=== PATIENT | male | born 1955 | race Caucasian/White ===

== ENCOUNTER 2016-05-23 02:02 | Inpatient (IN) | payer BC ==
[~2016-05-23] VITALS: Ht 167.6 cm; Wt 81.0 kg
[~2016-05-23 02:02] MED LIST: ASPI-535 PO; ATOR20TA38 PO; CAPT12.52 PO; CAPT25TA3 PO; CARV12.598 PO; CARV6.2579 PO; CLON0.1T14 PO; CLOP75TA27 PO; FAMO-30 PO; FAMO40TA38 PO; FENO200 PO; FLUTICASONE; LEVO750T8 PO; LORA-441 PO; PRAV40TA76 PO; SERT50TA6 PO; WELCHOL PO
[2016-05-23] MEDS ORDERED: morphine 4 MG/ML VIAL IV STA (02:06)
[2016-05-23] MEDS ORDERED: NITROGLYCERIN 2% 1 GM OINT PKT TD STA (02:06)
[2016-05-23] MEDS ORDERED: ONDANSETRON 4 MG INJ IV STA (02:06)
[2016-05-23 02:54] LABS: ADD SCAN DIFF NO
[2016-05-23 02:59] LABS: BASOPHILS % 0.3 % (0.0-2.0); EOSINOPHILS # 0.1 10^3/ul (0.0-0.5); EOSINOPHILS % 1.4 % (0.0-7.0); HEMATOCRIT 41.9 % (42.0-52.0); HEMOGLOBIN 13.9 g/dl (14.0-18.0); LYMPHOCYTES # 2.3 10^3/ul (0.8-2.9); LYMPHOCYTES % 26.1 % (15.0-51.0); MEAN CORPUSCULAR HEMOGLOBIN 28.5 pg (29.0-33.0); MEAN CORPUSCULAR HGB CONC 33.2 g/dl (32.0-37.0); MEAN CORPUSCULAR VOLUME 85.9 fl (82.0-101.0); MEAN PLATELET VOLUME 11.5 fl (7.4-10.4); MONOCYTE # 0.6 10^3/ul (0.3-0.9); NEUTROPHIL # 5.8 10^3/ul (1.6-7.5); NEUTROPHILS % 64.9 % (39.0-77.0); PLATELET COUNT 260 10^3/UL (140-415); RED BLOOD COUNT 4.88 10^6/ul (4.70-6.10); RED CELL DISTRIBUTION WIDTH 12.9 % (11.5-14.5); WHITE BLOOD COUNT 8.9 10^3/ul (4.8-10.8)
[2016-05-23 03:08] LABS: ALBUMIN 4.1 g/dl (3.3-4.9); CHLORIDE 103 mmol/L (97-110); POTASSIUM 3.9 mmol/L (3.5-5.1); SODIUM 144 mmol/L (135-144)
[2016-05-23 03:10] LABS: BILIRUBIN,INDIRECT 0.2 mg/dl (0-1.1); BILIRUBIN,TOTAL 0.2 mg/dl (0.2-1.3); CREATININE 0.78 mg/dl (0.61-1.24); INR 0.99; PROTIME 13.1 Sec (12.2-14.2)
[2016-05-23 03:11] LABS: ALANINE AMINOTRANSFERASE 46 IU/L (13-69); ALKALINE PHOSPHATASE 72 IU/L (42-121); ANION GAP 21 (8-16); ASPARTATE AMINO TRANSFERASE 25 IU/L (15-46); BLOOD UREA NITROGEN 20 mg/dl (7-20); CARBON DIOXIDE 24 mmol/L (21-31); GLUCOSE 123 mg/dl (70-220); PARTIAL THROMBOPLASTIN TIME 24.9 Sec (25.0-35.0); TOTAL PROTEIN 7.5 g/dl (6.1-8.1)
[2016-05-23 03:20] LABS: B-TYPE NATRIURETIC PEPTIDE 37 PG/ML (0-125)
[2016-05-23 03:27] LABS: TROPONIN-I < 0.012 ng/ml (0.00-0.12)
--- NOTE | 2016-05-23 03:36 | ERA ---
ER Documentation Chief Complaint Date/Time DATE: 05/23/16 TIME: 03:35 Chief Complaint CP this am unreleieved after 3 NTG tabs HPI This is a 14-year-old male comes in with chest pain since 1 AM. Unrelieved by 3 nitros. Pain is mild to moderate intensity, colicky nature with no exacerbating or alleviating factors ROS All systems reviewed and are negative except as per history of present illness. Medications Home Meds Reported Medications Atorvastatin Calcium* (Atorvastatin Calcium*) 20 Mg Tablet, 20 MG PO HS, TAB 10/30/13 Famotidine* (Pepcid*) 40 Mg Tablet, 40 MG PO DAILY, TAB 10/30/13 Captopril* (Captopril*) 25 Mg Tablet, 25 MG PO BID, TAB 10/30/13 Aspirin Ec (Aspir 81) 81 Mg Tablet.dr, 81 MG PO DAILY, TAB 10/30/13 Fenofibrate* (Fenofibrate*) 200 Mg Cap, 200 MG PO DAILY, CAP 10/30/13 Clopidogrel Bisulfate (Clopidogrel) 75 Mg Tablet, 75 MG PO DAILY, TAB 10/30/13 Carvedilol* (Coreg*) 12.5 Mg Tablet, 12.5 MG PO BID, TAB 10/30/13 Lorazepam* (Ativan*) 0.5 Mg Tablet, PO HS 07/03/13 Levofloxacin* (Levofloxacin*) 750 Mg Tablet, PO DAILY 07/03/13 Aspirin Ec (Aspir 81) 81 Mg Tablet.dr, PO DAILY 07/03/13 [Fluticasone] No Conflict Check, 50 MCG 07/03/13 Clonidine Hcl* (Catapres*) 0.1 Mg Tablet, PO Q8H 07/03/13 Sertraline Hcl* (Sertraline Hcl*) 50 Mg Tablet, PO DAILY 07/03/13 [Welchol] No Conflict Check, 625 MG PO 07/03/13 Famotidine* (Acid Controller*) 20 Mg Tablet, 20 MG PO DAILY 03/10/13 Clopidogrel Bisulfate (Clopidogrel) 75 Mg Tablet, 75 MG PO DAILY 03/10/13 Pravastatin Sodium* (Pravastatin Sodium*) 40 Mg Tablet, 80 MG PO DAILY, 0 Refills 03/10/13 Carvedilol* (Carvedilol*) 6.25 Mg Tablet, 6.25 MG PO BID 03/10/13 Captopril* (Captopril*) 12.5 Mg Tablet, 12.5 MG PO TID 03/10/13 Allergies Allergies: Coded Allergies: No Known Allergies (Verified Allergy, Unknown, 10/31/13) PMhx/Soc History of Surgery: Yes (triple bypass) Anesthesia Reaction: No Hx Neurological Disorder: No Hx Respiratory Disorders: No Hx Cardiac Disorders: Yes (heart attack 3 yrs ago with open heart surgery) Hx Psychiatric Problems: No Hx Miscellaneous Medical Probl: Yes (GERD) Hx Alcohol Use: No (wine occasionally) Hx Substance Use: No Hx Tobacco Use: No Smoking Status: Former smoker Physical Exam Vitals Vital Signs Date Time Temp Pulse Resp B/P Pulse Ox O2 Delivery O2 Flow Rate FiO2 05/23/16 02:21 Nasal Cannula 2 05/23/16 02:11 97.8 93 21 136/78 92 Physical Exam Const: [] Head: Atraumatic Eyes: Normal Conjunctiva ENT: Normal External Ears, Nose and Mouth. Neck: Full range of motion..~ No meningismus. Resp: Clear to auscultation bilaterally Cardio: Regular rate and rhythm, no murmurs Abd: Soft, non tender, non distended. Normal bowel sounds Skin: No petechiae or rashes Back: No midline or flank tenderness Ext: No cyanosis, or edema Neur: Awake and alert Psych: Normal Mood and Affect Result Diagram: 05/23/1621205/23/16212 Results 24 hrs Laboratory Tests Test 05/23/16 02:13 Activated Partial Thromboplast Time 24.9Sec Alanine Aminotransferase (ALT/SGPT) 46IU/L Albumin 4.1g/dl Albumin/Globulin Ratio 1.20 Alkaline Phosphatase 72IU/L Anion Gap 21 Aspartate Amino Transf (AST/SGOT) 25IU/L B-Type Natriuretic Peptide 37PG/ML Basophils # 0.010^3/ul Basophils % 0.3% Blood Urea Nitrogen 20mg/dl Calcium Level 9.0mg/dl Carbon Dioxide Level 24mmol/L Chloride Level 103mmol/L Creatinine 0.78mg/dl Direct Bilirubin 0.00mg/dl Eosinophils # 0.110^3/ul Eosinophils % 1.4% Globulin 3.40g/dl Glucose Level 123mg/dl Hematocrit 41.9% Hemoglobin 13.9g/dl INR International Normalized Ratio 0.99 Indirect Bilirubin 0.2mg/dl Lipase 64U/L Lymphocytes # 2.310^3/ul Lymphocytes % 26.1% Mean Corpuscular Hemoglobin 28.5pg Mean Corpuscular Hemoglobin Concent 33.2g/dl Mean Corpuscular Volume 85.9fl Mean Platelet Volume 11.5fl Monocytes # 0.610^3/ul Monocytes % 7.0% Neutrophils # 5.810^3/ul Neutrophils % 64.9% Nucleated Red Blood Cells # 0.010^3/ul Nucleated Red Blood Cells % 0.0/100WBC Platelet Count 62016^3/UL Potassium Level 3.9mmol/L Prothrombin Time 13.1Sec Prothrombin Time Ratio 1.0 Red Blood Count 4.8810^6/ul Red Cell Distribution Width 12.9% Sodium Level 144mmol/L Total Bilirubin 0.2mg/dl Total Protein 7.5g/dl Troponin I < 0.012ng/ml White Blood Count 8.910^3/ul Current Medications Medications (Trade) Dose Ordered Sig/Addie Route PRN Reason Start Time Stop Time Status Last Admin Dose Admin Nitroglycerin (Nitroglycerin 2% Oint) 1 inch ONCE STAT TD 05/23/16 02:06 05/23/16 02:08 DC 05/23/16 02:17 Morphine Sulfate (morphine) 4 mg ONCE STAT IV 05/23/16 02:06 05/23/16 02:08 DC Ondansetron HCl (Zofran Inj) 4 mg ONCE STAT IV 05/23/16 02:06 05/23/16 02:08 DC Procedures/MDM EKG: Rate/Rhythm: Normal Sinus Rhythm QRS, ST, T-waves: No changes consistent w/ acute ischemia Impression: No evidence of ischemia or arrhythmia Chest X-ray 1V Interpreted by me: Soft Tissue: No acute abnormalities Bones: No acute abnormalities Mediastinum/Cardiac Silhouette/Lungs: No acute abnormalities Patient's symptoms are concerning for cardiac cause will require inpatient workup and continuous monitoring. Further w/u for ischemia, arrhythmia, PE or dissection will be deferred to the inpatient team. Accepting Care Team: Current data and ongoing care discussed. Time: 3 AM Primary Provider: Dr. Nicole. Dr. Dunbar is on-call Consulting: [XOXOXO] Outstanding Data: none Departure Diagnosis: Primary Impression: Chest pain Qualified Code: I20.9 - Ischemic chest pain Additional Impression: Hypertensive emergency RAIZA BONDS May 23, 2016 03:36
--- NOTE | 2016-05-23 04:45 | RADRPT ---
PROCEDURE: CHEST - 1 VIEW CLINICAL INDICATION: 61-year-old male with chest pain. TECHNIQUE: A single frontal AP semi-erect view of the chest was performed portably. The images we re reviewed on a PACS workstation. COMPARISON: Chest x-ray on this 2013. FINDINGS: The patient has had a prior median sternotomy. There is a shallow inspiration accentuating the hear t size. Accounting for this, the cardiomediastinal silhouette is within normal limits without signi ficant interval change. There is mild bibasilar subsegmental atelectasis. There is no evidence for an infiltrate. There is no evidence for congestive heart failure. There is no evidence for pneumot horax. IMPRESSION: 1. Status post median sternotomy. 2. Shallow inspiration. 3. Mild bibasilar subsegmental atelectasis. .Suhail Huber MD, Date Time Electronically viewed and signed by .Suhail Huber MD, on 05/23/2016 04:45 .M/
[2016-05-23] MEDS ORDERED: ERGO500037 PO (06:58)
[2016-05-23] MEDS ORDERED: ASPI-664 PO (06:58)
[2016-05-23] MEDS ORDERED: ATOR80TA75 PO (06:59)
[2016-05-23] MEDS ORDERED: METO25TA7 PO (06:59)
[2016-05-23] MEDS ORDERED: CILO100T PO (06:59)
[2016-05-23] MEDS ORDERED: morphine 2 MG INJ IV PRN (11:00)
[2016-05-23] MEDS ORDERED: LORAZEPAM 0.5 MG TAB PO PRN (11:00)
[2016-05-23] MEDS ORDERED: DOCUSATE SODIUM 100 MG CAP PO PRN (11:00)
[2016-05-23] MEDS ORDERED: METOCLOPRAMIDE 10 MG INJ IV PRN (11:00)
[2016-05-23] MEDS ORDERED: NITROGLYCERIN (SL) 0.4 MG TAB SL PRN (11:00)
[2016-05-23] MEDS ORDERED: NACL 0.9% 3 ML SYG IV SCH (11:00)
--- NOTE | 2016-05-23 11:38 | RADRPT ---
Echocardiogram Report Patient Name: CHIKA FRANCIS Gender: Male Date: 1955 Study Date: 23-May-2016 Director Physical: Rere Loomis RDCS Location: Ref. Physician: JOVANI WINSTON Quality: Good Procedures: Transthoracic echocardiogram with complete 2D, M-Mode, and doppler examination. Indications: Coronary Artery Disease. 2D/M Mode Doppler Measurement Value Normal Ranges Measurement Value Normal Ranges LVIDd 2D 4.1 3.5 - 5.6 cm AV Peak Dyllan 1.0 m/sec LVIDs 2D 3.2 2.1 - 4.1 cm AV Peak PG 4.0 mmHg FS 2D 23.9 % LVOT Peak Dyllan 0.8 m/sec LVPWd 2D 1.1 0.6 - 1.1 cm LVOT Peak PG 3.0 mmHg IVSd 2D 0.9 0.6 - 1.1 cm MV E Peak Dyllan 0.4 m/sec IVS/LVPW 2D 0.8 MV A Peak Dyllan 0.6 m/sec AoR Diam 2D 2.8 2.0 - 3.7 cm MV E/A 0.7 LA/Ao 2D 1 0 - 1 MV Decel Time 218 msec EDV 2D 71.0 cm3 MV E/A 0.7 ESV 2D 31.3 cm3 LA Dimen 2D 3.9 2.3 - 4.0 cm Findings Left Ventricle: Normal left ventricular systolic function. Normal left ventricular cavity size. Normal left ventricular wall thickness. Ejection fraction is visually estimated at 60 %. Tissue Doppler/Mitral Doppler indices are consistent with impaired relaxation (Stage I diastolic dysfunction). Right Ventricle: Normal right ventricular size. Normal right ventricular systolic function. Left Atrium: The left atrium is normal in size. Right Atrium: The right atrium is normal in size. Mitral Valve: Mitral valve leaflets appear mildly thickened. Trace mitral regurgitation. Aortic Valve: Normal appearance of the aortic valve. No significant aortic stenosis or insufficiency. Tricuspid Valve: Normal appearance and function of the tricuspid valve with trace physiologic regurgitation. Pulmonic Valve: Normal pulmonic valve appearance. Pericardium: Normal pericardium with no significant pericardial effusion. Aorta: Normal aortic root. IVC: Normal size and normal respiratory collapse consistent with normal right atrial pressure. Conclusions 1.Normal left ventricular systolic function. Normal left ventricular cavity size. Normal left ventricular wall thickness. Ejection fraction is visually estimated at 60 %. Tissue Doppler/Mitral Doppler indices are consistent with impaired relaxation (Stage I diastolic dysfunction). 2.Normal right ventricular size. Normal right ventricular systolic function. 3.The left atrium is normal in size. 4.The right atrium is normal in size. 5.No significant valvular stenosis or regurgitation seen. 6.Normal pericardium with no significant pericardial effusion. Electronically Signed By: Arcadio Linn 23-May-2016 11:37:37 -0800 Patient Name: CHIKA FRANCIS Study Date: 23-May-[id number]
[2016-05-23] MEDS: PANTOPRAZOLE (EC) 40 MG TAB PO SCH (11:48)
[2016-05-23] MEDS: ASPIRIN 81 MG TAB PO SCH (11:48)
[2016-05-23] MEDS: ENOXAPARIN 30 MG/0.3 ML SYG SC SCH (11:49)
[2016-05-23 12:39] LABS: CK-MB 0.52 ng/ml (0.0-2.4)
--- NOTE | 2016-05-23 12:55 | HP ---
DATE OF ADMISSION: 05/23/2016 CHIEF COMPLAINT: Chest pain and hypertension. HISTORY OF PRESENT ILLNESS: The patient is a 61-year-old gentleman with past medical history positi ve for coronary artery disease status post CABG 5 years ago with history of hypertension. The patie nt stated that he follows in Dr. Jensen's office and had a stress test done in 12/2015 with no notion of ischemia. The patient stated that he has on and off chest pain that he has been having for the last 6 months. The patient stated that he had chest pain develop last night and he took nitroglycer in, which did not relieve any pain. The patient also complains of headache and stated that his bloo d pressure was elevated and patient took his regular blood pressure medication, which is Coreg and C atapres. The patient was able to fall asleep; however, woke up in the middle of the night with head ache and chest pain, and they measured his blood pressure which was 195/100. The patient decided to come to the emergency room for further evaluation. In the emergency room, patient underwent a ches t x-ray which showed mild bibasilar subsegmental atelectasis, shallow inspiration, status post media n sternotomy. The patient's troponin was found negative. The patient was given some nitroglycerin, morphine and Zofran with some relief in pain. The patient denies any fever or chills. Denies any nausea, vomiting, diarrhea. Denies any bilateral lower extremity swelling. The patient denies any cough. Denies any recent infection. The patient denies any neurological symptoms. The patient violet l be admitted for further evaluation and management to telemetry floor. PAST MEDICAL HISTORY: Positive for coronary artery disease and hypertension. PAST SURGICAL HISTORY: Status post CABG 5 years ago. FAMILY HISTORY: Noncontributory. SOCIAL HISTORY: The patient lives at home with his family. The patient denies any tobacco use. De nies any illicit drug use. The patient drinks alcohol a small amount occasionally. ALLERGIES: NO KNOWN ALLERGIES. HOME MEDICATIONS: 1. Atorvastatin. 2. Pepcid. 3. Captopril. 4. Aspirin. 5. Fenofibrate. 6. Plavix. 7. Coreg. 8. Ativan. 9. Catapres. 10. Sertraline. REVIEW OF SYSTEMS: A 12-point review of systems is negative unless what mentioned in the HPI. PHYSICAL ASSESSMENT GENERAL: A well-developed, well-nourished male, currently is awake, alert. VITAL SIGNS: Temperature 97.8, pulse is 64, blood pressure is 110/73, respiratory rate 20, oxygen s aturation 99% on 2 liters nasal cannula. HEENT: Head is atraumatic, normocephalic. Pupils equal, round, reactive to light and accommodation . Oral mucosa is pink and moist. NECK: Supple, no cervical lymphadenopathy, no thyromegaly, no JVD. CHEST: Lungs are clear bilaterally. There is no rhonchi, wheezes, rales noted. CARDIOVASCULAR: Normal S1, S2. No murmurs, gallops, clicks, rubs noted. ABDOMEN: Round, soft, nondistended, nontender. Bowel sounds present. There is no guarding, no re bound tenderness. EXTREMITIES: No edema, clubbing, cyanosis. Pulses equal bilaterally, 2+. SKIN: There is no rash, petechiae noted. NEUROLOGIC: The patient is awake, alert and oriented x4. No focal deficits noted. Motor strength is 5/5 in all extremities. ASSESSMENT AND PLAN: 1. Chest pain. Rule out acute coronary syndrome. We will obtain cardiac enzymes q.8h. x3. Dr. Clarence zaragoza will be following patient in cardiology consultation. Obtain 12-lead EKG and 2D echocardiogra m to evaluate ejection fraction. Continue patient on Coreg and Catapres. Continue aspirin and nitr oglycerin for pain. 2. Hypertension. 3. Coronary artery disease, status post CABG 5 years ago. PLAN: We will continue morphine and Tylenol p.r.n. for pain. Start Lovenox for deep venous thrombo sis prophylaxis and Protonix for peptic ulcer disease prophylaxis. Further recommendations based on clinical course. Plan of care discussed with Dr. Paul. Dictated By: JOVANI WINSTON DIGITAL ASSISTANT for SERVANDO PAUL MD SR/NTS Conf#: [id number] DID#: [id number]
[2016-05-23 16:01] VITALS: Ht 167.6 cm; Wt 81.0 kg
[2016-05-23 16:39] VITALS: PULSE 70
--- NOTE | 2016-05-23 17:26 | CONS ---
DATE OF ADMISSION: 05/23/2016 DATE OF CONSULTATION: 05/23/2016 REASON FOR CONSULTATION: Chest pain, assess for acute coronary syndrome. REQUESTING PHYSICIAN: Servando Paul MD HISTORY OF PRESENT ILLNESS: Mr. Pool is a 61-year-old male with history of coronary artery di sease, status post coronary artery bypass grafting 5 years prior, hypertension, dyslipidemia who ini tially presented with complaints of substernal chest pain, poorly described, occurring at rest. Upo n arrival in the emergency department, temperature 97.8, blood pressure 136/78, pulse 93, respirator y rate 21, saturating 92%. The patient's labs revealed white count 8.9, hemoglobin 13.9, platelet c ount of 260. Sodium 144, potassium 3.9, creatinine 0.78, BUN 20. Troponin negative. BNP of 37, IN R 0.99. The patient's chest x-ray revealed shallow respirations, mild bibasilar subsegmental atelec tasis. The patient's electrocardiogram revealed normal sinus rhythm at 87, normal axis, normal inte rvals, with nonspecific ____. The patient was subsequently admitted to the floor and since admit to the floor, has been treated with morphine and Nitro Paste, he has improvement in chest pain. PAST MEDICAL HISTORY: As above in HPI. Patient stated he had a stress test in my office in December 2015, which was negative for ischemia, results which are unknown to me at this time. MEDICATIONS CURRENTLY IN HOSPITAL: 1. Aspirin 81 mg daily. 2. Protonix 40 mg daily. 3. Reglan p.r.n. 4. Sublingual nitroglycerin p.r.n. 5. Morphine p.r.n. 5. Colace p.r.n. 6. Lovenox p.r.n. MEDICATIONS PRIOR TO ADMIT: 1. Pletal 100 mg b.i.d. 2. Lipitor 80 mg at bedtime. 3. Captopril 25 mg p.o. b.i.d. 4. ____ 20 mg daily. 4. Toprol-XL 25 mg daily. 5. Aspirin 81 mg daily. 6. Pepcid 20 mg daily. 7. Vitamin D. ALLERGIES: NO KNOWN DRUG ALLERGIES. SOCIAL HISTORY: No tobacco, ETOH or illicit drug use. FAMILY HISTORY: No history of sudden cardiac or early CAD. REVIEW OF SYSTEMS: As above in HPI. CONSTITUTIONAL: No fevers, chills. PULMONARY: No current shortness of breath. CARDIOVASCULAR: Chest pain. GASTROINTESTINAL: No vomiting. GENITOURINARY: No hematuria. MUSCULOSKELETAL: Degenerative joint disease. PSYCHIATRIC: The patient denies depression. NEUROLOGIC: No documented history of CVA. ENDOCRINE: No documented history of diabetes mellitus. PHYSICAL EXAMINATION: VITAL SIGNS: Temperature 97.8, blood pressure 119/74, pulse 70, satting 100% on 2 liters. GENERAL: The patient is alert, awake, complaining of intermittent substernal chest pain. NECK: JVP approximately 8 cm water. CHEST: Fair air movement throughout. HEART: Regular rate and rhythm. Normal S1, S2, I/ systolic murmur, nondisplaced PMI. ABDOMEN: Positive bowel sounds, soft. EXTREMITIES: No pitting edema, 1+ pulses bilaterally, posterior tibial. LABORATORIES: As above in HPI, with most recently from today, troponin negative x2. IMAGING STUDIES: As above in HPI. No further imaging studies for my review at this time. ECG: As above in HPI. No further electrocardiograms for my review at this time. IMPRESSION: 1. Chest pain, assess for acute coronary syndrome. 2. History of coronary artery disease, status post coronary bypass grafting. 3. Hypertension. 4. Abnormal electrocardiogram, assess for acute coronary syndrome. 5. History of dyslipidemia. RECOMMENDATIONS: 1. At this time, would maintain the patient on telemetry monitoring to follow rhythm and rate contr ol closely. 2. Continue the patient's current aspirin for prophylaxis against cardiovascular events. 3. Would resume the patient's baseline beta jessica for control of heart rate and blood pressure in the setting of known coronary artery disease and chest pain and will additionally resume the patien t's baseline captopril and statin therapy. 4. Complete the patient's rule out for myocardial infarction, ____that the patient's chest pain was not due to an acute coronary syndrome ____ acute myocardial infarction. 5. Check a fasting lipid panel and will adjust the patient's statin therapy as above. 6. We will follow the patient's stress test done in the office to assess for the possibility of nee d of a left heart catheterization and the patient has undergone a 2D echo interpreted by another car diologist, read as EF of 60% with diastolic dysfunction. Thank you for allowing me to take part in the care of this patient. I will continue to follow along very closely with you. Further recommendations will be made as the patient progresses through his inpatient hospital clinical course. Dictated By: ROSHNI BOSS/MJ Conf#: [id number] DID#: [id number] CC: SERVANDO PAUL MD; BASILIO ROUSE MD;*EndCC*
[2016-05-23 19:20] LABS: CREATINE KINASE 70 IU/L (23-200)
[2016-05-23 19:34] LABS: CK-MB 0.46 ng/ml (0.0-2.4); TROPONIN-I < 0.012 ng/ml (0.00-0.12)
[2016-05-23] MEDS: ACETAMINOPHEN 325 MG TAB PO PRN (19:52)
[2016-05-23 20:00] VITALS: BP 135/83; RESP 19
[2016-05-23 20:25] VITALS: PULSE 79
[2016-05-23] MEDS: ISOSORBIDE DINITRATE 10 MG TAB PO SCH (21:38)
[2016-05-24] VITALS (11 sets, daily range): BP systolic 104–149; BP diastolic 57–78; PULSE 63–89; RESP 18–20
[2016-05-24] MEDS: PANTOPRAZOLE (EC) 40 MG TAB PO SCH (05:10)
[2016-05-24 07:51] LABS: POTASSIUM 4.1 mmol/L (3.5-5.1)
[2016-05-24 07:54] LABS: ALBUMIN/GLOBULIN RATIO 1.25; BILIRUBIN,INDIRECT 0.3 mg/dl (0-1.1); BILIRUBIN,TOTAL 0.3 mg/dl (0.2-1.3); CREATININE 0.86 mg/dl (0.61-1.24); TOTAL PROTEIN 7.2 g/dl (6.1-8.1)
[2016-05-24 08:24] LABS: THYROID STIMULATING HORMONE 1.14 MIU/L (0.465-4.680)
[2016-05-24] MEDS: ISOSORBIDE DINITRATE 10 MG TAB PO SCH ×3 (08:38→20:27)
[2016-05-24] MEDS: ASPIRIN 81 MG TAB PO SCH (08:38)
[2016-05-24] MEDS: ACETAMINOPHEN 325 MG TAB PO PRN (08:38)
[2016-05-24] MEDS: ENOXAPARIN 30 MG/0.3 ML SYG SC SCH (08:50)
[2016-05-24] MEDS ORDERED: METOPROLOL (XL) 25 MG TAB PO SCH (09:00)
--- NOTE | 2016-05-24 15:43 | PN ---
Date/Time of Note Date/Time of Note DATE: 05/24/16 TIME: 15:42 Assessment/Plan Lines/Catheters IV [facility]ter Type (from [facility]): Peripheral IV Urinary Cath still in place: No Assessment/Plan Assessment/Plan 1. Chest pain. Rule out acute coronary syndrome. We will obtain cardiac enzymes q.8h. x3. Dr. Pastrana will be following patient in cardiology consultation. Obtain 12-lead EKG and 2D echocardiogram to evaluate ejection fraction. Continue patient on Coreg and Catapres. Continue aspirin and nitroglycerin for pain. 2. Hypertension. 3. Coronary artery disease, status post CABG 5 years ago. PLAN: We will continue morphine and Tylenol p.r.n. for pain. Start Lovenox for deep venous thrombosis prophylaxis and Protonix for peptic ulcer disease prophylaxis. Further recommendations based on clinical course. Plan of care discussed with Dr. Strong. Subjective 24 Hr Interval Summary Constitutional: improved, no complaints ENT: no complaints Respiratory: no complaints Cardiovascular: no complaints Gastrointestinal: no complaints Exam/Review of Systems Vital Signs Vitals Vital Signs Date Time Temp Pulse Resp B/P Pulse Ox O2 Delivery O2 Flow Rate FiO2 05/24/16 15:17 97.7 74 19 125/72 98 05/23/16 21:40 Nasal Cannula 2.0 Intake and Output 05/23/16 05/23/16 05/24/16 15:00 23:00 07:00 Intake Total 480 ml Output Total 580 ml Balance -100 ml Exam Constitutional: alert, oriented ENMT: nl external ears & nose Results Result Diagram: 05/23/16 0213 05/24/16 0620 Results 24 hrs Laboratory Tests Test 05/23/16 18:55 05/24/16 06:20 Creatine Kinase 70 Creatine Kinase Index 0.7 Creatinine Kinase MB (Mass) 0.46 Troponin I < 0.012 < 0.012 Alanine Aminotransferase (ALT/SGPT) 44 Albumin 4.0 Albumin/Globulin Ratio 1.25 Alkaline Phosphatase 65 Anion Gap 17 H Aspartate Amino Transf (AST/SGOT) 26 B-Type Natriuretic Peptide 51 Blood Urea Nitrogen 21 H Calcium Level 9.0 Carbon Dioxide Level 26 Chloride Level 104 Creatinine 0.86 Direct Bilirubin 0.00 Globulin 3.20 Glucose Level 104 Indirect Bilirubin 0.3 Potassium Level 4.1 Sodium Level 143 Thyroid Stimulating Hormone (TSH) 1.140 Total Bilirubin 0.3 Total Protein 7.2 Medications Medications Current Medications Lorazepam (Ativan) 0.5 mg Q8H PRN PO ANXIETY; Start 05/23/16 at 11:00 Metoclopramide HCl (Reglan) 10 mg Q6H PRN IV NAUSEA AND/OR VOMITING; Start 05/23 at 11:00 Aspirin (Aspirin) 81 mg DAILY PO Last administered on 05/24/16 08:38; Admin Dose 81 MG; Start 05/23/16 at 12:00 Nitroglycerin (Nitroglycerin (Sl Tab) 0.4 Mg) 1 tab Q5M PRN SL CHEST PAIN; Start 05/23/16 at 11:00 Acetaminophen (Tylenol Tab) 650 mg Q6H PRN PO PAIN LEVEL 1-3 OR FEVER Last administered on 05/24/16 08:38; Admin Dose 650 MG; Start 05/23/16 at 11:00 Morphine Sulfate (morphine) 2 mg Q4H PRN IV PAIN LEVEL 7-10; Start 05/23/16 at 11:00 Docusate Sodium (Colace) 100 mg Q12H PRN PO CONSTIPATION; Start 05/23/16 at 11: 00 Pantoprazole (Protonix Tab) 40 mg DAILY@06 PO Last administered on 05/24/16 05: 10; Admin Dose 40 MG; Start 05/23/16 at 12:00 Enoxaparin Sodium (Lovenox) 30 mg DAILY SC Last administered on 05/24/16 08:50 ; Admin Dose 30 MG; Start 05/23/16 at 11:00 Metoprolol Succinate (Toprol Xl) 25 mg DAILY PO Last administered on 05/24/16 08:38; Admin Dose 25 MG; Start 05/24/16 at 09:00 Isosorbide Dinitrate (Isordil) 10 mg TID PO Last administered on 05/24/16 12:20 ; Admin Dose 10 MG; Start 05/23/16 at 21:00 MILTON MORFIN May 24, 2016 15:43
--- NOTE | 2016-05-24 18:31 | CONS ---
Date/Time of Note Date/Time of Note DATE: 05/24/16 TIME: 18:25 Assessment/Plan Assessment/Plan Chief Complaint/Hosp Course IMPRESSION: 1. Chest pain, assess for acute coronary syndrome.-negative troponin x 3/NL EF by echo this admit. Stress test done in office 11/07 was read as probably NL with possible inferior scar and ? ischemia verssus artifact 2. History of coronary artery disease, status post coronary bypass grafting. 3. Hypertension. 4. Abnormal electrocardiogram, assess for acute coronary syndrome. 5. History of dyslipidemia Redcc: -Tele -serial ecg's -Continue BB/oral nitrates. -Continue asa -If no recurrent pain then patient is ok for d/c from cardiac standpoint with close outpatient f/u Problems: Consultation Date/Type/Reason Admit Date/Time May 23, 2016 at 03:32 Initial Consult Date 05/23/2016 Type of Consultation: Cardiology Reason for Consultation CHF Referring Provider: SERVANDO PAUL MD Exam/Review of Systems Vital Signs Vitals Vital Signs Date Time Temp Pulse Resp B/P Pulse Ox O2 Delivery O2 Flow Rate FiO2 05/24/16 16:00 89 05/24/16 15:17 97.7 19 125/72 98 05/23/16 21:40 Nasal Cannula 2.0 Intake and Output 05/23/16 05/23/16 05/24/16 15:00 23:00 07:00 Intake Total 480 ml Output Total 580 ml Balance -100 ml Exam Review of Systems: CONSTITUTIONAL: No fevers, chills. PULMONARY: No sob CARDIOVASCULAR: No chest pain/palpitations GASTROINTESTINAL: No nausea/vomiting. GENITOURINARY: No hematuria/dysuria. MUSCULOSKELETAL: No myagias/arthalgias. PSYCHIATRIC: The patient denies depression. NEUROLOGIC: No weakness Constitutional: alert, oriented Psych: no complaints Head: normocephalic ENMT: mucosa pink and moist Neck: jvd (9 cm water), supple Respiratory: diminished breath sounds (at bases/B) Cardiovascular: regular rate and rhythm Gastrointestinal: non-tender, soft Musculoskeletal: muscle tone (normal) Extremities: edema Neurological: other (No focal deficits) Results Result Diagram: 05/23/16 0213 05/24/16 0620 Results 24 hrs Laboratory Tests Test 05/23/16 18:55 05/24/16 06:20 Creatine Kinase 70 Creatine Kinase Index 0.7 Creatinine Kinase MB (Mass) 0.46 Troponin I < 0.012 < 0.012 Alanine Aminotransferase (ALT/SGPT) 44 Albumin 4.0 Albumin/Globulin Ratio 1.25 Alkaline Phosphatase 65 Anion Gap 17 H Aspartate Amino Transf (AST/SGOT) 26 B-Type Natriuretic Peptide 51 Blood Urea Nitrogen 21 H Calcium Level 9.0 Carbon Dioxide Level 26 Chloride Level 104 Creatinine 0.86 Direct Bilirubin 0.00 Globulin 3.20 Glucose Level 104 Indirect Bilirubin 0.3 Potassium Level 4.1 Sodium Level 143 Thyroid Stimulating Hormone (TSH) 1.140 Total Bilirubin 0.3 Total Protein 7.2 Medications Medications Current Medications Lorazepam (Ativan) 0.5 mg Q8H PRN PO ANXIETY; Start 05/23/16 at 11:00 Metoclopramide HCl (Reglan) 10 mg Q6H PRN IV NAUSEA AND/OR VOMITING; Start 05/23 at 11:00 Aspirin (Aspirin) 81 mg DAILY PO Last administered on 05/24/16 08:38; Admin Dose 81 MG; Start 05/23/16 at 12:00 Nitroglycerin (Nitroglycerin (Sl Tab) 0.4 Mg) 1 tab Q5M PRN SL CHEST PAIN; Start 05/23/16 at 11:00 Acetaminophen (Tylenol Tab) 650 mg Q6H PRN PO PAIN LEVEL 1-3 OR FEVER Last administered on 05/24/16 08:38; Admin Dose 650 MG; Start 05/23/16 at 11:00 Morphine Sulfate (morphine) 2 mg Q4H PRN IV PAIN LEVEL 7-10; Start 05/23/16 at 11:00 Docusate Sodium (Colace) 100 mg Q12H PRN PO CONSTIPATION; Start 05/23/16 at 11: 00 Pantoprazole (Protonix Tab) 40 mg DAILY@06 PO Last administered on 05/24/16 05: 10; Admin Dose 40 MG; Start 05/23/16 at 12:00 Enoxaparin Sodium (Lovenox) 30 mg DAILY SC Last administered on 05/24/16 08:50 ; Admin Dose 30 MG; Start 05/23/16 at 11:00 Metoprolol Succinate (Toprol Xl) 25 mg DAILY PO Last administered on 05/24/16 08:38; Admin Dose 25 MG; Start 05/24/16 at 09:00 Isosorbide Dinitrate (Isordil) 10 mg TID PO Last administered on 05/24/16t 12:20 ; Admin Dose 10 MG; Start 05/23/16 at 21:00 ROSHNI TRACY May 24, 2016 18:31
--- NOTE | 2016-05-24 19:40 | PDOCDIS ---
Discharge Instructions CONDITION Patient Condition: Stable HOME CARE INSTRUCTIONS: Diet Instructions: Special Diet: Cardiac ACTIVITY: Activity Restrictions: Slowly Increase Activity Rest between Activity Avoid heavy lifting Do not operate Machinery Do not operate Power Tool Avoid Heavy Housework Bathing Restrictions: Sponge Bath FOLLOW UP/APPOINTMENTS Appointments FU with primary MD X 1 week FU with cardiology x 1week Patient verbalized understanding discharge instructions. call 911 or go to the nearest hospital if symptoms get worse. Daniele Strong/ staff/patient. MILTON MORFIN May 24, 2016 19:40
[2016-05-24] MEDS ORDERED: ISOS10TA2 PO (19:54)
[2016-05-24] MEDS ORDERED: PANT40TA4 PO (19:54)
[2016-05-24] MEDS ORDERED: NIT4 SL (19:54)
--- NOTE | 2016-05-24 20:03 | DS ---
Date/Time of Note Date/Time of Note DATE: 05/24/16 TIME: 20:03 Discharge Summary Admission/Discharge Info Admit Date/Time May 23, 2016 at 03:32 Discharge Date/Time Patient Condition: Stable Hospital Course IMPRESSION: 1. Chest pain, assess for acute coronary syndrome.-negative troponin x 3/NL EF by echo this admit. Stress test done in office 11/07 was read as probably NL with possible inferior scar and ? ischemia verssus artifact 2. History of coronary artery disease, status post coronary bypass grafting. 3. Hypertension. 4. Abnormal electrocardiogram, assess for acute coronary syndrome. 5. History of dyslipidemia Redcc: -Tele -serial ecg's -Continue BB/oral nitrates. -Continue asa -If no recurrent pain then patient is ok for d/c from cardiac standpoint with close outpatient f/u Home Meds Active Scripts Pantoprazole* (Pantoprazole*) 40 Mg Tablet., 40 MG PO DAILY@06 for 30 Days Prov:MILTON MORFIN 05/24/16 Nitroglycerin* (Nitrostat*) 0.4 Mg Tab.subl, 1 TAB SL Q5M Y for CHEST PAIN, #30 Prov:MILTON MORFIN 05/24/16 Isosorbide Dinitrate* (Isordil*) 10 Mg Tablet, 10 MG PO TID for 30 Days, TAB Prov:MILTON MORFIN 05/24/16 Reported Medications Metoprolol Succinate* (Toprol XL*) 25 Mg Tab.sr.24h, 25 MG PO DAILY, #30 TAB 05/23/16 Atorvastatin* (Atorvastatin*) 80 Mg Tablet, 80 MG PO QHS, #30 TAB 05/23/16 Cilostazol* (Cilostazol*) 100 Mg Tablet, 100 MG PO BID, TAB 05/23/16 Aspirin (Low Dose Aspirin) 81 Mg Tablet.dr, 81 MG PO DAILY, #30 TAB 05/23/16 Ergocalciferol (Vitamin D2) (VITAMIN D2) 50,000 Unit Capsule, 51680 UNIT PO every 7 days, CAP 05/23/16 Captopril* (Captopril*) 25 Mg Tablet, 25 MG PO BID, TAB 10/30/13 Fenofibrate* (Fenofibrate*) 200 Mg Cap, 200 MG PO DAILY, CAP 10/30/13 Famotidine* (Acid Controller*) 20 Mg Tablet, 20 MG PO DAILY 03/10/13 Discontinued Reported Medications Atorvastatin Calcium* (Atorvastatin Calcium*) 20 Mg Tablet, 20 MG PO HS, TAB 10/30/13 Famotidine* (Pepcid*) 40 Mg Tablet, 40 MG PO DAILY, TAB 10/30/13 Aspirin Ec (Aspir 81) 81 Mg Tablet.dr, 81 MG PO DAILY, TAB 10/30/13 Clopidogrel Bisulfate (Clopidogrel) 75 Mg Tablet, 75 MG PO DAILY, TAB 10/30/13 Carvedilol* (Coreg*) 12.5 Mg Tablet, 12.5 MG PO BID, TAB 10/30/13 Lorazepam* (Ativan*) 0.5 Mg Tablet, PO HS 07/03/13 Levofloxacin* (Levofloxacin*) 750 Mg Tablet, PO DAILY 07/03/13 Aspirin Ec (Aspir 81) 81 Mg Tablet.dr, PO DAILY 07/03/13 [Fluticasone] No Conflict Check, 50 MCG 07/03/13 Clonidine Hcl* (Catapres*) 0.1 Mg Tablet, PO Q8H 07/03/13 Sertraline Hcl* (Sertraline Hcl*) 50 Mg Tablet, PO DAILY 07/03/13 [Welchol] No Conflict Check, 625 MG PO 07/03/13 Clopidogrel Bisulfate (Clopidogrel) 75 Mg Tablet, 75 MG PO DAILY 03/10/13 Pravastatin Sodium* (Pravastatin Sodium*) 40 Mg Tablet, 80 MG PO DAILY, 0 Refills 03/10/13 Carvedilol* (Carvedilol*) 6.25 Mg Tablet, 6.25 MG PO BID 03/10/13 Captopril* (Captopril*) 12.5 Mg Tablet, 12.5 MG PO TID 03/10/13 Pending Labs Laboratory Tests Test 05/24/16 06:20 Alanine Aminotransferase (ALT/SGPT) 44IU/L (13-69) Albumin 4.0g/dl (3.3-4.9) Albumin/Globulin Ratio 1.25 Alkaline Phosphatase 65IU/L (42-121) Anion Gap 17 (8-16) Aspartate Amino Transf (AST/SGOT) 26IU/L (15-46) B-Type Natriuretic Peptide 51PG/ML (0-125) Blood Urea Nitrogen 21mg/dl (7-20) Calcium Level 9.0mg/dl (8.4-10.2) Carbon Dioxide Level 26mmol/L (21-31) Chloride Level 104mmol/L (97-110) Creatinine 0.86mg/dl (0.61-1.24) Direct Bilirubin 0.00mg/dl (0.00-0.20) Globulin 3.20g/dl (1.3-3.2) Glucose Level 104mg/dl (70-220) Indirect Bilirubin 0.3mg/dl (0-1.1) Potassium Level 4.1mmol/L (3.5-5.1) Sodium Level 143mmol/L (135-144) Thyroid Stimulating Hormone (TSH) 1.140MIU/L (0.465-4.680) Total Bilirubin 0.3mg/dl (0.2-1.3) Total Protein 7.2g/dl (6.1-8.1) Troponin I < 0.012ng/ml (0.00-0.12) MILTON MORFIN May 24, 2016 20:03
--- NOTE | 2016-05-25 13:39 | RADRPT ---
Vent Rate: 62 bpm RR Interval: 0 msec [place] Interval: 172 msec QRS Duration: 76 msec QT Interval: 414 msec QTC Interval: 420 msec P-R-T [place]: 53 - 33 - 46 degrees Normal sinus rhythm Normal ECG Electronically Signed By: Wale Phelan [id number]
== END 2016-05-24 21:15 | disposition home or self-care (01) | DRG 313 ==
LOC: E/R 02:02 → TEL 03:32
PROVIDERS: ADMIT Internal Medicine; ATTEND Internal Medicine
DX: R07.9 Chest pain, unspecified (principal); I25.2 Old myocardial infarction; I10 Essential (primary) hypertension; K21.9 Gastro-esophageal reflux disease without esophagitis; I25.10 Atherosclerotic heart disease of native coronary artery without angina pectoris; E78.5 Hyperlipidemia, unspecified; R94.31 Abnormal electrocardiogram [ECG] [EKG]; Z95.1 Presence of aortocoronary bypass graft; Z79.82 Long term (current) use of aspirin; Z79.02 Long term (current) use of antithrombotics/antiplatelets; Z87.891 Personal history of nicotine dependence
CPT/HCPCS: 36415; 71010; 80053; 82550; 82553; 83690; 83880; 84443; 84484; 85025; 85610; 85730; 93005; 93306; 96372; J1650; J2270; J2405

== ENCOUNTER 2016-11-10 20:05 | Emergency (ER) | payer BC, OTHER ==
[~2016-11-10] VITALS: Ht 167.6 cm; Wt 72.3 kg
[~2016-11-10 20:05] MED LIST changes: -ASPI-535 PO; +ASPI-664 PO; -ATOR20TA38 PO; +ATOR80TA75 PO; -CAPT12.52 PO; -CARV12.598 PO; -CARV6.2579 PO; +CILO100T PO; -CLON0.1T14 PO; -CLOP75TA27 PO; +ERGO500037 PO; -FAMO40TA38 PO; -FLUTICASONE; +ISOS10TA2 PO; -LEVO750T8 PO; -LORA-441 PO; +METO25TA7 PO; +NIT4 SL; +PANT40TA4 PO; -PRAV40TA76 PO; -SERT50TA6 PO; -WELCHOL PO
[2016-11-10 20:10] VITALS: Ht 167.6 cm; Wt 72.3 kg
[2016-11-10] MEDS ORDERED: SOD CHLORIDE 0.9% 1,000 ML IV STA (22:15)
[2016-11-10] MEDS ORDERED: ONDANSETRON 4 MG INJ IV STA (22:15)
[2016-11-10] MEDS ORDERED: KETOROLAC 15 MG INJ IV STA (22:15)
[2016-11-10 22:39] LABS: BASOPHILS % 0.2 % (0.0-2.0); EOSINOPHILS % 0.2 % (0.0-7.0); HEMATOCRIT 41.2 % (42.0-52.0); HEMOGLOBIN 13.8 g/dl (14.0-18.0); LYMPHOCYTES # 1.6 10^3/ul (0.8-2.9); LYMPHOCYTES % 9.3 % (15.0-51.0); MEAN CORPUSCULAR HEMOGLOBIN 29.2 pg (29.0-33.0); MEAN CORPUSCULAR HGB CONC 33.5 g/dl (32.0-37.0); MEAN CORPUSCULAR VOLUME 87.1 fl (82.0-101.0); MEAN PLATELET VOLUME 11.2 fl (7.4-10.4); MONOCYTE # 0.8 10^3/ul (0.3-0.9); NEUTROPHILS % 84.9 % (39.0-77.0); PLATELET COUNT 259 10^3/UL (140-415); RED BLOOD COUNT 4.73 10^6/ul (4.70-6.10); RED CELL DISTRIBUTION WIDTH 12.7 % (11.5-14.5); WHITE BLOOD COUNT 16.7 10^3/ul (4.8-10.8)
[2016-11-10 22:45] LABS: ADD UMIC YES; UR ASCORBIC ACID NEGATIVE (NEGATIVE); UR BILIRUBIN (Dip) NEGATIVE (NEGATIVE); UR BLOOD (Dip) 3+ mg/dL (NEGATIVE); UR CLARITY CLEAR (CLEAR); UR COLOR YELLOW (YELLOW); UR GLUCOSE (Dip) NEGATIVE (NEGATIVE); UR KETONES (Dip) NEGATIVE (NEGATIVE); UR LEUKOCYTE ESTERASE (Dip) NEGATIVE Leu/ul (NEGATIVE); UR MUCUS FEW /HPF (NONE SEEN); UR NITRITE (Dip) NEGATIVE (NEGATIVE); UR RBC 121 /HPF (0-5); UR SPECIFIC GRAVITY (Dip) 1.025 (1.003-1.030); UR TOTAL PROTEIN (Dip) NEGATIVE (NEGATIVE); UR UROBILINOGEN (Dip) 1+ mg/dL (NEGATIVE)
[2016-11-10 23:07] LABS: ALBUMIN 4.9 g/dl (3.3-4.9); ALBUMIN/GLOBULIN RATIO 1.96; BILIRUBIN,INDIRECT 0.4 mg/dl (0-1.1); BILIRUBIN,TOTAL 0.4 mg/dl (0.2-1.3); CALCIUM 10.3 mg/dl (8.4-10.2); CREATININE 0.99 mg/dl (0.61-1.24); TOTAL PROTEIN 7.4 g/dl (6.1-8.1)
[2016-11-10 23:14] LABS: INR 1.04; PROTIME 13.6 Sec (12.2-14.2); PT RATIO 1.1
--- NOTE | 2016-11-10 23:50 | RADRPT ---
PROCEDURE: CT abdomen and pelvis without contrast. CLINICAL INDICATION: Right-sided abdominal pain. TECHNIQUE: CT of the abdomen and pelvis without contrast was performed on a multidetector high-reso lution CT scanner. Coronal and sagittal reformatted images were obtained from the axial source image s. Images were reviewed on a high-resolution PACS workstation. The total exam CTDI equals 11.9 mGy a nd the total exam DLP equals 677.56 mGy-cm. One or more of the following dose reduction techniques were used: - Automated exposure control. - Adjustment of the mA and/or kV according to patient size. - Use of iterative reconstruction technique. COMPARISON: None available. FINDINGS: Visualized lower thorax: There has been prior median sternotomy. There is dependent change at the l wilson bases, which are otherwise clear. The visualized heart is unremarkable. Hepatobiliary system and spleen: The liver is grossly unremarkable. There is no intra or extrahepat ic biliary ductal dilatation. The gallbladder is grossly unremarkable. The spleen is grossly unremar kable. The pancreas is grossly unremarkable. Adrenal glands and genitourinary system: The adrenal glands are grossly unremarkable. There is a si mple 2 cm cyst at the upper pole left kidney. There is no left-sided nephrolithiasis or hydronephro sis. There is a 5 mm stone at the right ureteral vesicle junction with mild prominence of the right ureter, but no significant hydronephrosis. The prostate gland and seminal vesicles are grossly unrem arkable. There is a small fat containing right inguinal hernia. Gastrointestinal system: The stomach and small bowel are unremarkable. There is no bowel wall thick ening or evidence of obstruction. The appendix is in the right lower quadrant and is unremarkable. Peritoneum, vascular, and lymphatics: There is no free intraperitoneal air or free fluid. There is no mesenteric or retroperitoneal adenopathy. There are atherosclerotic changes of the aorta, which i s nonaneurysmal. Musculoskeletal system and soft tissues: There is mild to moderate multilevel degenerative enthesop athy. There are no concerning osseous lesions. IMPRESSION: 1. Stone measuring 5 mm at the right UVJ with associated mild prominence of the right ureter, but n o significant hydronephrosis. 2. Small fat containing right inguinal hernia. 3. Vascular calcifications consistent with atherosclerosis. These findings discussed with Dr. Workman in the ED at 2347 hours on 11/10/2016. RPTAT: HLBP .Abad Covington MD, MD Date Time Electronically viewed and signed by .Abad Covington MD, MD on 11/10/2016 23:50 .P/
[2016-11-11] MEDS ORDERED: OXYC-279 PO (00:05)
[2016-11-11] MEDS ORDERED: IBUP-1542 PO (00:05)
[2016-11-11] MEDS ORDERED: CEPH-443 PO (00:05)
[2016-11-11] MEDS ORDERED: CEPHALEXIN 500 MG CAP PO ONE (00:30)
[2016-11-11 00:53] VITALS: BP 133/76; PULSE 72; RESP 17
--- NOTE | 2016-11-11 22:32 | ERD ---
ER Documentation Chief Complaint Date/Time DATE: 11/11/16 TIME: 22:30 Chief Complaint right lower quadrant pain started today, more pain on palpation HPI 61-year-old man presents with right lower quadrant abdominal pain, colicky beginning a couple hours prior to arrival. States the pain is now constant and associated with nausea although he has had no vomiting. He denies hematuria, no fevers or chills, no chest pain or shortness of breath. Patient denies recent antibiotic use, recent travel, or previous episodes. ROS All systems reviewed and are negative except as per history of present illness. Medications Home Meds Active Scripts Oxycodone HCl/Acetaminophen (Percocet 5-325 mg Tablet) 1 Each Tablet, 1 EACH PO TID for PAIN LEVEL 6-10, #10 TAB Prov:TAMMY CROFT MD 11/11/16 Cephalexin* (Keflex*) 500 Mg Capsule, 500 MG PO QID for 5 Days, CAP Prov:TAMMY CROFT MD 11/11/16 Ibuprofen* (Ibuprofen*) 600 Mg Tablet, 600 MG PO Q8 for PAIN AND/OR INFLAMMATION , #30 TAB Prov:TAMMY CROFT MD 11/11/16 Pantoprazole* (Pantoprazole*) 40 Mg Tablet., 40 MG PO DAILY@06 for 30 Days Prov:MILTON MORFIN 05/24/16 Nitroglycerin* (Nitrostat*) 0.4 Mg Tab.subl, 1 TAB SL Q5M Y for CHEST PAIN, #30 Prov:MILTON MORFIN 05/24/16 Isosorbide Dinitrate* (Isordil*) 10 Mg Tablet, 10 MG PO TID for 30 Days, TAB Prov:MILTON MORFIN 05/24/16 Reported Medications Metoprolol Succinate* (Toprol XL*) 25 Mg Tab.sr.24h, 25 MG PO DAILY, #30 TAB 05/23/16 Atorvastatin* (Atorvastatin*) 80 Mg Tablet, 80 MG PO QHS, #30 TAB 05/23/16 Cilostazol* (Cilostazol*) 100 Mg Tablet, 100 MG PO BID, TAB 05/23/16 Aspirin (Low Dose Aspirin) 81 Mg Tablet., 81 MG PO DAILY, #30 TAB 05/23/16 Ergocalciferol (Vitamin D2) (VITAMIN D2) 50,000 Unit Capsule, 68631 UNIT PO every 7 days, CAP 05/23/16 Captopril* (Captopril*) 25 Mg Tablet, 25 MG PO BID, TAB 10/30/13 Fenofibrate* (Fenofibrate*) 200 Mg Cap, 200 MG PO DAILY, CAP 10/30/13 Famotidine* (Acid Controller*) 20 Mg Tablet, 20 MG PO DAILY 03/10/13 Allergies Allergies: Coded Allergies: No Known Allergies (Verified Allergy, Unknown, 10/31/13) PMhx/Soc Dyslipidemia, hypertension, coronary artery disease History of Surgery: Yes (Open Heart Surg,Cardiac Stents x1-3) Anesthesia Reaction: No Hx Neurological Disorder: Yes (L Hemiparesis CVA) Hx Respiratory Disorders: No Hx Cardiac Disorders: Yes (STEMI(2011),HTN) Hx Psychiatric Problems: No Hx Miscellaneous Medical Probl: Yes (Dyslipidemia) Hx Alcohol Use: Yes (Social) Hx Substance Use: No Hx Tobacco Use: No Smoking Status: Never smoker FmHx Family History: No diabetes Physical Exam Vitals Vital Signs Date Time Temp Pulse Resp B/P Pulse Ox O2 Delivery O2 Flow Rate FiO2 11/11/16 00:53 72 17 133/76 97 Room Air 11/11/16 00:20 69 133/76 98 Room Air 11/10/16 20:10 98.1 91 24 167/85 100 Physical Exam GENERAL: Well-developed, well-nourished, well-hydrated, in moderate discomfort HEENT: Moist mucous membranes, pink conjunctiva, no cervical spine tenderness or step-off deformities, no goiter, no jaundice or icterus, extraocular movements intact without pain. No submandibular induration, and no pharyngeal erythema NEURO: Alert and oriented 3, cranial nerves II through XII intact bilaterally, pupils equal round reactive to light, no focal deficits or facial asymmetry, sensation intact distally Strength 5/5 in upper and lower extremities bilaterally CARDIAC: Regular rate and rhythm, no murmurs rubs or gallops LUNGS: Clear bilaterally no wheezing crackles or stridor ABDOMEN: Soft nontender, no guarding, no rigidity, no rebound, no psoas sign no obturator sign. Normoactive bowel sounds SKIN: Warm and dry to touch, no abrasions, contusions, or hematomas, no lacerations, no ecchymosis, no target lesions, and without ulcers EXTREMITIES: No clubbing cyanosis or edema, calves are bilaterally symmetrical, no Homans sign, no popliteal cord sign. Distal pulses equal and bilateral PSYCH: Normal affect without agitation or irritability Result Diagram: 11/10/16221711/10/162217 Results 24 hrs Laboratory Tests Test 11/10/16 22:18 White Blood Count 16.710^3/ul Red Blood Count 4.7310^6/ul Hemoglobin 13.8g/dl Hematocrit 41.2% Mean Corpuscular Volume 87.1fl Mean Corpuscular Hemoglobin 29.2pg Mean Corpuscular Hemoglobin Concent 33.5g/dl Red Cell Distribution Width 12.7% Platelet Count 88437^3/UL Mean Platelet Volume 11.2fl Neutrophils % 84.9% Lymphocytes % 9.3% Monocytes % 5.0% Eosinophils % 0.2% Basophils % 0.2% Nucleated Red Blood Cells % 0.0/100WBC Neutrophils # (Manual) 1410^3/ul Lymphocytes # 1.610^3/ul Monocytes # 0.810^3/ul Eosinophils # 0.010^3/ul Basophils # 0.010^3/ul Nucleated Red Blood Cells # 0.010^3/ul Prothrombin Time 13.6Sec Prothrombin Time Ratio 1.1 INR International Normalized Ratio 1.04 Urine Color YELLOW Urine Clarity CLEAR Urine pH 5.0 Urine Specific [place] 1.025 Urine Ketones NEGATIVEmg/dL Urine Nitrite NEGATIVEmg/dL Urine Bilirubin NEGATIVEmg/dL Urine Urobilinogen 1+mg/dL Urine Leukocyte Esterase NEGATIVELeu/ul Urine Microscopic RBC 121/HPF Urine Microscopic WBC 2/HPF Urine Mucus FEW/HPF Urine Hemoglobin 3+mg/dL Urine Glucose NEGATIVEmg/dL Urine Total Protein NEGATIVEmg/dl Sodium Level 142mmol/L Potassium Level 4.0mmol/L Chloride Level 103mmol/L Carbon Dioxide Level 27mmol/L Anion Gap 16 Blood Urea Nitrogen 23mg/dl Creatinine 0.99mg/dl Glucose Level 84mg/dl Calcium Level 10.3mg/dl Total Bilirubin 0.4mg/dl Direct Bilirubin 0.00mg/dl Indirect Bilirubin 0.4mg/dl Aspartate Amino Transf (AST/SGOT) 21IU/L Alanine Aminotransferase (ALT/SGPT) 38IU/L Alkaline Phosphatase 68IU/L Total Protein 7.4g/dl Albumin 4.9g/dl Globulin 2.50g/dl Albumin/Globulin Ratio 1.96 Lipase 52U/L Current Medications Medications (Trade) Dose Ordered Sig/Addie Route PRN Reason Start Time Stop Time Status Last Admin Dose Admin Sodium Chloride (NS) 1,000 ml @ 1,000 mls/hr Q1H STAT IV 11/10/16 22:15 11/10/16 23:14 DC 11/10/16 22:21 Ondansetron HCl (Zofran Inj) 4 mg ONCE STAT IV 11/10/16 22:15 11/10/16 22:17 DC 11/10/16 22:21 Ketorolac Tromethamine (Toradol) 15 mg ONCE STAT IV 11/10/16 22:15 11/10/16 22:17 DC 11/10/16 22:22 Cephalexin (Keflex) 500 mg ONCE ONCE PO 11/11/16 00:30 11/11/16 00:39 DC 11/11/16 00:53 Procedures/MDM I administered 1 L normal saline intravenously, Toradol 15 mg IV, and Zofran 4 mg IV with good response. CT scan of the abdomen and pelvis was performed revealing a small right ureter calculus. Please refer to radiologist dictation for full report. CBC revealed leukocytosis and electrolytes are normal, liver function tests normal. Urinalysis revealed blood Patient's pain resolved. Differential diagnoses considered, included but not limited to acute coronary syndrome, pulmonary embolism, aortic dissection, abdominal aortic aneurysm, sepsis, stroke, meningitis, encephalitis, pneumonia, appendicitis, cholecystitis , bowel obstruction, pyelonephritis, nephrolithiasis, cystitis, as well as metabolic, hematologic, and electrolyte abnormalities. As well as abscess, cellulitis, fractures, and dislocations. Patient feels much better at this time, and vital signs are normal, symptoms have improved. I did give strict instructions to return to the ED if symptoms continue or worsen, patient will otherwise follow-up with primary care physician. Patient understood instructions and agreed to plan. Disclaimer: Inadvertent spelling and grammatical errors are likely due to EHR/ dictation software use and do not reflect on the overall quality of patient care. Also, please note that the electronic time recorded on this note does not necessarily reflect the actual time of the patient encounter. Departure Diagnosis: Primary Impression: Kidney stone Condition: Good Patient Instructions: Kidney Stone W/ Colic LANGTAMMY MD Nov 11, 2016 22:32
== END 2016-11-11 00:55 | disposition home or self-care (01) ==
LOC: E/R 20:05
DX: N20.0 Calculus of kidney (principal); I10 Essential (primary) hypertension; I25.10 Atherosclerotic heart disease of native coronary artery without angina pectoris; Z79.82 Long term (current) use of aspirin; Z98.61 Coronary angioplasty status
CPT/HCPCS: 36415; 74176; 80053; 81001; 83690; 85025; 85610; 96374; 96375; J1885; J2405; J7030; Z7502; Z7610

== ENCOUNTER 2017-03-21 23:20 | Inpatient (IN) | END 2017-03-22 19:38 | disposition home or self-care (01) | DRG 312 ==

== ENCOUNTER 2018-10-08 02:21 | Emergency (ER) | payer MEDICARE, OTHER ==
[~2018-10-08] VITALS: Ht 167.6 cm; Wt 80.9 kg
[~2018-10-08 02:21] MED LIST changes: +AMLO5TAB4 PO; -ASPI-664 PO; +ASPI81TA52 PO; +ATOR-2 PO; -ATOR80TA75 PO; -CILO100T PO; +ERGO500013 PO; -ERGO500037 PO; +FAMO-142 PO; -FAMO-30 PO; -ISOS10TA2 PO; -METO25TA7 PO; -NIT4 SL; +OSEL75CA23 PO; -PANT40TA4 PO
[2018-10-08 02:22] VITALS: BP 159/79; PULSE 63; RESP 16; Ht 167.6 cm; Wt 80.9 kg
[2018-10-08] MEDS ORDERED: MECLIZINE 12.5 MG TAB PO ONE (04:00)
[2018-10-08] MEDS ORDERED: MECL12.574 PO (05:01)
--- NOTE | 2018-10-08 06:47 | ERD ---
ER Documentation Chief Complaint Chief Complaint RA39; DHILLON X2HRS; NO FACIAL DROOP; NO WEAKNESS; NO CP; NO SOB; NO ALOC HPI 63-year-old male presenting to the ED for headache x2 hours. Patient states that he said the symptoms on and off. The patient takes daily aspirin. States he has been feeling a little weak and dizzy over the past few days. Patient has past medical history of hypertension triple bypass surgery. The patient is alert oriented x4. The patient's is here with him and is able to translate. The patient denies any nausea vomiting diarrhea, chest pain shortness of breath abdominal pain. The patient states that he just has had a headache for the past 2 hours and has had it off and on for the last few days. ROS All systems reviewed and are negative except as per history of present illness. Medications Home Meds Active Scripts Meclizine Hcl* (Antivert*) 12.5 Mg Tab, 12.5 MG PO Q6H PRN for DIZZINESS, #20 TAB Prov:RUDOLPH BROWN PA-C 10/08/18 Oseltamivir Phosphate* (Tamiflu*) 75 Mg Capsule, 75 MG PO BID for 7 Days, #14 CAP Prov:TRINITY KHAN MD 03/22/17 Reported Medications Amlodipine Besylate* (Norvasc*) 5 Mg Tablet, 5 MG PO DAILY, TAB 03/21/17 Atorvastatin* (Atorvastatin*) 80 Mg Tablet, 80 MG PO QHS, #30 TAB 05/23/16 Aspirin (Low Dose Aspirin) 81 Mg Tablet.dr, 81 MG PO DAILY, #30 TAB 05/23/16 Ergocalciferol (Vitamin D2) (VITAMIN D2) 50,000 Unit Capsule, 66247 UNIT PO every 7 days, CAP 05/23/16 Captopril* (Captopril*) 25 Mg Tablet, 25 MG PO BID, TAB 10/30/13 Fenofibrate* (Fenofibrate*) 200 Mg Cap, 200 MG PO DAILY, CAP 10/30/13 Famotidine* (Acid Controller*) 20 Mg Tablet, 20 MG PO DAILY 03/10/13 Allergies Allergies: Coded Allergies: No Known Allergies (Verified Allergy, Unknown, 03/21/17) PMhx/Soc History of Surgery: Yes (HEART SURGERY 2011, [facility]) Anesthesia Reaction: No 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 Neck: Full range of motion. No meningismus. Resp: Clear to auscultation bilaterally Cardio: Regular rate and rhythm, no murmurs Abd: Soft, non tender, non distended. Normal bowel sounds Skin: No petechiae or rashes Back: No midline or flank tenderness Ext: No cyanosis, or edema Neur: Awake and alert, horizontal nystagmus Psych: Normal Mood and Affect Results 24 hrs Current Medications Medications Dose Sig/Addie Start Time Status Last (Trade) Ordered Route PRN Stop Time Admin Dose Reason Admin Meclizine 12.5 mg ONCE ONCE 10/08/18 DC 10/08/18 HCl PO 04:00 03:45 (Antivert) 10/08/18 04:01 Procedures/MDM Diagnostic imaging: Read by radiologist PROCEDURE: CT Brain without contrast. CLINICAL INDICATION: Headache dizziness and weakness TECHNIQUE: A CT of the brain was performed on a [employer] CT scanner utilizing axial imaging from the skull base through the vertex without IV contrast. Multiplanar reformatted images were made. Images were reviewed on a PACS workstation. The CTDIvol is 39.59 mGy and the DLP is 634.23 mGycm. DICOM images are available. One of the following 3 dose reduction techniques were used during this CT examination: 1) Automated exposure control 2) Adjustment of the mA +/- kV according to patient size or 3) Use of iterative reconstruction technique COMPARISON: Head CT June 30, 2013 FINDINGS: There is no intracranial hemorrhage, mass effect, or midline shift. No extra- axial fluid collection is seen. The ventricles and sulci are normal in size and configuration. The density of the brain is normal, and the malone white matter differentiation appears well-preserved. Mild vascular calcifications are present of the intracranial internal carotid arteries. The visualized scalp and calvarium are normal. The bilateral orbits are normal. The bilateral paranasal sinuses, left mastoid air cells and left middle ear cavity are clear. Chronic soft tissue attenuation is noted in the right mastoid air cells and middle ear cavity. IMPRESSION: 1. No evidence of acute intracranial hemorrhage, infarcts, or acute intracranial pathology. 2. Mild atherosclerotic vascular disease 3. Chronic right mastoid and middle ear soft tissue attenuation compatible with otomastoiditis however cannot exclude cholesteatoma. Recommend ENT consultation and CT temporal bones as indicated clinically. RPTAT: HDC .Drae Castañeda MD, MD Medications given in ER: Meclizine Patient tolerated medication well with no adverse reactions. Patient reported improvement in pain. Medical decision making: This 63-year-old male presented to ED for headache x2 hours. Patient states the symptoms have been on and off for the last few days. Patient's vitals are within normal limits. Patient has past medical history of triple bypass surgery and hypertension. Currently the patient has no chest pain shortness of breath. At this time I have low suspicion for IL, PE. Patient's neuro exam showed no focal motor weakness, slurred speech, muscle asymmetry. At this time I have low suspicion for TIA, CVA. The patient's tympanic membranes are intact nonerythematous no pain on examination. At this time I have low suspicion for acute otitis media, otitis externa. Patient does state that he has some ringing in his ear from time to time. I gave the patient a dose of meclizine and on re evaluation he appears to be doing much better. Patient was sent for head CT scan. The results were taking a while and they wanted to leave they were here for several hours. I advised the family that if the CT scan came back with any abnormal findings I would call them. At the time they asked me to leave the patient was stable he was alert oriented x4 I had no concerns for subdermal or had epidural hematoma, TIA or CVA. These were the diagnosis they were most concerned about when they came to the ED. The left me with her phone number and I advised her I would call her as soon as the results came in. I spoke with the shortly after they left on the phone and explained the findings of chronic right mastoid and middle ear soft tissue attenuation compatible with otomastoiditis however cannot exclude cholesteatoma. Recommend ENT consultation and CT temporal bones as indicated clinically. I advised her that her needs to get into an ENT as soon as possible. That she should go to his primary care provider first thing in the morning to get an appointment. The requested a texture of these results and information. I texted the the information and she received it. Both the and are compliant with the treatment plan and understand the severity of the findings. That no further questions once I spoke to them on the phone. I advised him if the symptoms worsen return to ER immediately. They are in agreement to the treatment plan Prescription for home: Meclizine I have discussed with the patient proper use and common side effects to expert with the medication . I advised the patient/family to speak with the pharmacist dispensing the medication to be advised of any potential drug interactions with other medication or supplements they may be taking. Discharge: At this time, patient is stable for discharge and outpatient management. I have instructed the patient to follow-up with his\her primary care physician in 1 to 2 days. I have discussed with the patient the possibility of needing to see a specialist for further work-up and imaging studies if symptoms persist. I have instructed the patient to promptly return to the ER for any new or worsening symptoms including increased pain, fever, nausea, vomiting, weakness or LOC. The patient and\or family expressed understanding of and agreement with this plan. All questions were answered. Home care instructions were provided. Disclaimer: Inadvertent spelling and grammatical errors are likely due to EHR\dictation software use and do not reflect on the overall quality of patient care. Also, please note that the electronic time recorded on the note does not necessarily reflect the actual time of the patient encounter. Departure Diagnosis: Primary Impression: Headache Headache type: unspecified Headache chronicity pattern: acute headache Intractability: intractable Qualified Codes: R51 - Headache Additional Impression: BPV (benign positional vertigo) Laterality: unspecified laterality Qualified Codes: H81.10 - Benign paroxysmal vertigo, unspecified ear Condition: Stable Patient Instructions: Self-Care for Headaches Referrals: COMMUNITY CLINICS YOU HAVE RECEIVED A MEDICAL SCREENING EXAM AND THE RESULTS INDICATE THAT YOU DO NOT HAVE A CONDITION THAT REQUIRES URGENT TREATMENT IN THE EMERGENCY DEPARTMENT. FURTHER EVALUATION AND TREATMENT OF YOUR CONDITION CAN WAIT UNTIL YOU ARE SEEN IN YOUR DOCTORS OFFICE WITHIN THE NEXT 1-2 DAYS. IT IS YOUR RESPONSIBILITY TO MAKE AN APPOINTMENT FOR FOLOW-UP CARE. IF YOU HAVE A PRIMARY DOCTOR --you should call your primary doctor and schedule an appointment IF YOU DO NOT HAVE A PRIMARY DOCTOR YOU CAN CALL OUR PHYSICIAN REFERRAL HOTLINE AT IF YOU CAN NOT AFFORD TO SEE A PHYSICIAN YOU CAN CHOSE FROM THE FOLLOWING COMMUNITY [facility] [address] [facility] [address] [facility] [facility] [address] [facility] [address] [facility] [facility] [address] [facility]. [address] [facility] [address] [facility] YOU HAVE RECEIVED A MEDICAL SCREENING EXAM AND THE RESULTS INDICATE THAT YOU DO NOT HAVE A CONDITION THAT REQUIRES URGENT TREATMENT IN THE EMERGENCY DEPARTMENT. FURTHER EVALUATION AND TREATMENT OF YOUR CONDITION CAN WAIT UNTIL YOU ARE SEEN IN YOUR DOCTORS OFFICE WITHIN THE NEXT 1-2 DAYS. IT IS YOUR RESPONSIBILITY TO MAKE AN APPOINTMENT FOR FOLOW-UP CARE. IF YOU HAVE A PRIMARY DOCTOR --you should call your primary doctor and schedule and appointment IF YOU DO NOT HAVE A PRIMARY DOCTOR YOU CAN CALL OUR PHYSICIAN REFERRAL HOTLINE AT . IF YOU CAN NOT AFFORD TO SEE A PHYSICIAN YOU CAN CHOSE FROM THE FOLLOWING PERSON [facility]: [facility] [address] [place] [address] [facility] [address] [place] [address] [facility] [address] [place] [address] Additional Instructions: Call your primary care doctor TOMORROW for an appointment during the next 1-2 days.See the doctor sooner or return here if your condition worsens before your appointment time. RUDOLPH BROWN PA-C Oct 08, 2018 06:47
== END 2018-10-08 05:28 | disposition home or self-care (01) ==
LOC: FTE 02:21
DX: H81.10 Benign paroxysmal vertigo, unspecified ear (principal); I10 Essential (primary) hypertension; Z79.82 Long term (current) use of aspirin; Z86.73 Personal history of transient ischemic attack (TIA), and cerebral infarction without residual deficits; Z98.61 Coronary angioplasty status
CPT/HCPCS: 70450